=== PATIENT | male | born 1965 | race Hispanic/Latino ===

== ENCOUNTER → 2018-05-05 | Outpatient (CLI) | payer OTHER | END | disposition home or self-care (01) | LOC: RAH 14:41 | PROVIDERS: ATTEND Internal Medicine | DX: Z13.6 Encounter for screening for cardiovascular disorders (principal) | CPT/HCPCS: 75571 ==

== ENCOUNTER 2023-07-29 06:29 | Day surgery (SDC) | payer OTHER ==
[~2023-07-29] VITALS: Ht 175.3 cm; Wt 88.0 kg
[2023-07-29] VITALS (11 sets, daily range): BP systolic 99–148; BP diastolic 55–87; PULSE 59–76; RESP 14–16
[~2023-07-29 06:29] MED LIST: 0.9%NACL 1000ML 1,000 ML IV ONE; ATOR10 PO; CETI10TA57 PO; METF750T46 PO
[2023-07-29] MEDS ORDERED: PROPOFOL 10 MG/ML 20ML VIAL IV ONE (08:47)
== END 2023-07-29 10:15 | disposition home or self-care (01) ==
LOC: DAH 06:29 → ENDO 06:29
PROVIDERS: ATTEND Surgery
DX: D12.8 Benign neoplasm of rectum (principal); I10 Essential (primary) hypertension; E78.5 Hyperlipidemia, unspecified; E66.9 Obesity, unspecified; E11.9 Type 2 diabetes mellitus without complications; F17.200 Nicotine dependence, unspecified, uncomplicated; Z79.01 Long term (current) use of anticoagulants; Z79.899 Other long term (current) drug therapy; Z68.28 Body mass index [BMI] 28.0-28.9, adult
CPT/HCPCS: 82948 ×2; 45330; J7030 ×3; J2704; A4620 ×2; A4215 ×4; A4223 ×2; A7002 ×2; A4222 ×2; A4221 ×2; A4663 ×2; A4606 ×2; J3490